=== PATIENT | male | born 2000 | race American Indian/Alaskan Native ===

== ENCOUNTER 2023-09-27 18:27 | Emergency (ER) | payer SELFPAY ==
[2023-09-27] MEDS: Ondansetron 4 MG/2 ML SDV IVPUSH ONE (19:44)
[2023-09-27] MEDS: Sodium Chloride 0.9% 1,000 ML IV STA (19:44)
[2023-09-27] MEDS: Sodium Chloride 0.9% 10 ML Syringe FLUSH PRN (19:46)
[2023-09-27] MEDS: Ketorolac 30 MG/ML SDV IVPUSH ONE (23:15)
== END 2023-09-27 23:20 ==
LOC: JD.ED 18:27
DX: K85.10 Biliary acute pancreatitis without necrosis or infection (principal)
CPT/HCPCS: 76705; 96361; 96374; 96375; 99285; J1885; J2405; J3490; J7030; 99284